=== PATIENT | male | born 1955 | race Caucasian/White ===

== ENCOUNTER 2023-04-07 11:41 | Emergency (ER) | payer MEDICARE, SELFPAY ==
[2023-04-07 11:54] VITALS: BP 152/99; PULSE 75; RESP 18; TEMP 36.2; O2SAT 96; BMI 22.2
--- NOTE | 2023-04-07 12:09 | ED.DENTAL ---
HPI - Dental/Oral General Date Seen: 04/07/23 Chief complaint: Dental/Oral/Mouth Injury/Pain Stated complaint: Lower R tooth pain Time Seen by Provider: 04/07/23 11:42 Source: patient and family Mode of arrival: ambulatory Limitations: no limitations History of Present Illness HPI Narrative: Patient is a 68-year-old gentleman in here with his daughter, with a history of pain swelling on his right lower premolar, for the last week to week and a half. He has had this problem before, and tells me that he just cannot afford to go to the dentist. He was treated with antibiotics, of our urgent care and October and did well with these. Is requesting the same antibiotics, tells me that he has had no problems swallowing no fevers no chills, is here because his daughter is made him come here. He is using some Tylenol and or ibuprofen for the discomfort. Has a problem with his seen [place]. Has had a long history of tooth issues. Tells me he is not asking for any pain medication. MD Complaint: tooth pain Teeth map: 1. Related Data Home Medications Medication Instructions Recorded Confirmed albuterol sulfate 90 mcg/actuation 2 puff inhalation Q4-6H PRN 01/31/23 04/07/23 aerosol inhaler aspirin 81 mg tablet,delayed 81 mg PO QDAY 01/31/23 01/31/23 release atorvastatin 80 mg tablet 80 mg PO QDAY 01/31/23 04/07/23 fluocinonide 0.05 % topical cream 1 applic topical BID 01/31/23 04/07/23 ibuprofen 200 mg capsule 600 mg PO Q6H PRN 01/31/23 04/07/23 ketoconazole 2 % shampoo 1 applic topical 3XW 01/31/23 04/07/23 ketoconazole 2 % topical cream 1 applic topical QDAY 01/31/23 04/07/23 losartan 100 mg tablet 100 mg PO QDAY 01/31/23 04/07/23 metoprolol succinate 100 mg 100 mg PO QDAY 01/31/23 04/07/23 tablet,extended release 24 hr mometasone-formoterol HFA 200 2 puff inhalation Q12H 01/31/23 04/07/23 mcg-5 mcg/actuation aerosol inhaler (Dulera) nitroglycerin 0.3 mg sublingual 0.3 mg sublingual Q5M PRN 01/31/23 04/07/23 tablet triamcinolone acetonide 0.1 % 1 applic topical BID 01/31/23 04/07/23 topical cream Previous Rx's Medication Instructions Recorded amoxicillin 875 mg-potassium 1 tab PO BID #20 tabs 04/07/23 clavulanate 125 mg tablet Allergies Allergy/AdvReac Type Severity Reaction Status Date / Time No Known Drug Allergies Allergy Verified 01/31/23 12:06 Review of Systems Status of ROS: Reports: 10 or more systems reviewed and unremarkable except as noted in History and below Exam Narrative: Exam Narrative: On examination he is in no apparent distress there is a little bit of fullness over the right lower side of his jaw, he does not have any lymphadenopathy in the anterior posterior chains, his neck is supple full range of motion his mouth opening is normal with absence of trismus. There is a little bit a redness anteriorly around tooth number 27 the tooth itself appears to be basically gone, with a carious base. Multiple other teeth are carious also. Despite the redness I can see no evidence of pointing, to suggest abscess. I did offer to numb the area up and it least try and needle aspiration. But he declined this. Const: Vital Signs, click to edit/add: Vital Signs - 24 hr 04/07/23 11:54 Temperature 97.1 F L Pulse Rate [Left P ulse Oximeter] 75 Respiratory Rate 18 Blood Pressure [Ri ght Upper Arm] 152/99 H Pulse Oximetry 96 Oxygen Delivery Me thod Room Air Course Vital Signs Vital signs: Initial Vital Signs Temperature 97.1 F L 04/07/23 11:54 Temperature Source Temporal Artery Scan 04/07/23 11:54 Pulse Rate 75 04/07/23 11:54 Pulse Rhythm Regular 04/07/23 11:54 Pulse Strength 3+ Normal 04/07/23 11:54 Respiratory Rate 18 04/07/23 11:54 Blood Pressure 152/99 H 04/07/23 11:54 Blood Pressure Mean 116 H 04/07/23 11:54 Blood Pressure Position Sitting 04/07/23 11:54 Pulse Oximetry 96 04/07/23 11:54 Oxygen Delivery Method Room Air 04/07/23 11:54 Vital Signs Temperature 97.1 F L 04/07/23 11:54 Pulse Rate 75 04/07/23 11:54 Respiratory Rate 18 04/07/23 11:54 Blood Pressure 152/99 H 04/07/23 11:54 Pulse Oximetry 96 04/07/23 11:54 Oxygen Delivery Method Room Air 04/07/23 11:54 Temperature 97.1 F L 04/07/23 11:54 Pulse Rate 75 04/07/23 11:54 Respiratory Rate 18 04/07/23 11:54 Blood Pressure 152/99 H 04/07/23 11:54 Pulse Oximetry 96 04/07/23 11:54 Oxygen Delivery Method Room Air 04/07/23 11:54 Discharge Plan Discharge Clinical Impression: Gingival abscess, Dental caries Patient Disposition: Home w/ Parent or Adult Condition: Stable Instructions: Gingivitis (ED), Tooth Extraction (DC), Periodontal Disease (DC) Additional Instructions: Home, rest, use of antibiotics as directed, follow-up with dentistry, return if increasing swelling pain, or is anything we can Sudhir here. We went over signs and symptoms of worsening condition, he knows that he needs to come back to be seen, local dental contacts are given to the patient, Activity Level: No Restrictions Prescriptions: New amoxicillin-pot clavulanate 875-125 mg tablet 1 tab PO BID Qty: 20 0RF No Action albuterol sulfate 90 mcg/actuation HFA aerosol inhaler 2 puff inhalation Q4-6H PRN aspirin 81 mg tablet,delayed release (DR/EC) 81 mg PO QDAY atorvastatin 80 mg tablet 80 mg PO QDAY Dulera 200-5 mcg/actuation HFA aerosol inhaler 2 puff inhalation Q12H fluocinonide 0.05 % cream 1 applic topical BID ibuprofen 200 mg capsule 600 mg PO Q6H PRN ketoconazole 2 % shampoo 1 applic topical 3XW ketoconazole 2 % cream 1 applic topical QDAY losartan 100 mg tablet 100 mg PO QDAY metoprolol succinate 100 mg tablet extended release 24 hr 100 mg PO QDAY nitroglycerin 0.3 mg tablet, sublingual 0.3 mg sublingual Q5M PRN Rx Instructions: do not exceed 3 doses per episode triamcinolone acetonide 0.1 % cream 1 applic topical BID Follow Up/Referrals: Provider,Not a Local [Referring] - Stand Alone Forms: [facility] Info Instructions
== END 2023-04-07 12:13 | disposition home or self-care (01) ==
LOC: ED 12:05
PROVIDERS: Emergency Provider Family Medicine; PCP Family Medicine
DX: K05.20 Aggressive periodontitis, unspecified (principal); K02.9 Dental caries, unspecified
CPT/HCPCS: 99283